=== PATIENT | male | born 1995 | race Caucasian/White ===

== ENCOUNTER 2019-07-12 23:31 | Emergency (ER) | payer BC ==
[~2019-07-12] VITALS: Ht 177.8 cm; Wt 68.0 kg
[2019-07-13 00:48] LABS: BASO # 0.1 10*3/uL (0.0-0.1); BASO % 0.6 % (0.0-1.0); EOS # 0.1 10*3/uL (0.0-0.4); EOS % 0.9 % (1.0-4.0); HEMATOCRIT 47.6 % (42.0-52.0); HEMOGLOBIN 15.8 g/dl (14.0-18.0); LYMPH # 1.6 10*3/uL (1.3-4.4); LYMPH % 12.5 % (27.0-41.0); MEAN CELL VOLUME 89.1 fl (80.0-94.0); MEAN CORPUSCULAR HGB 29.6 pg (27.0-31.0); MEAN CORPUSCULAR HGB CONC 33.2 g/dl (33.0-37.0); MEAN PLATELET VOLUME 13.4 fl (9.6-12.3); MONO # 0.6 10*3/uL (0.1-1.0); MONO % 4.9 % (3.0-9.0); NEUT # 10.3 10*3/uL (2.3-7.9); NEUT % 80.1 % (47.0-73.0); RED BLOOD COUNT 5.34 10*6/uL (4.50-5.90); RED CELL DISTRI WIDTH 11.9 % (0-14.5); WHITE BLOOD COUNT 12.8 10*3/uL (4.8-10.8)
[2019-07-13 01:05] LABS: ALBUMIN 4.2 gm/dl (3.1-4.5); ALKALINE PHOSPHATASE 78 U/L (45-117); BUN 16 mg/dl (7-24); CHLORIDE 105 mmol/L (98-107); CREATININE 1.08 mg/dL (0.70-1.30); LIPASE 124 U/L (73-393); POTASSIUM 4.5 mmol/L (3.5-5.1); SGOT/AST 23 IU/L (3-35); SGPT/ALT 55 U/L (12-78); SODIUM 139 mmol/L (136-145); TOTAL PROTEIN 8.4 gm/dL (6.4-8.2)
[2019-07-13 01:11] LABS: PLATELET COUNT AUTOMATED 85 10*3/uL (130-400)
== END 2019-07-13 02:20 | disposition home or self-care (01) ==
LOC: ED 23:31
PROVIDERS: Emergency Medicine Emergency Medical Services
DX: F10.929 Alcohol use, unspecified with intoxication, unspecified (principal); D69.6 Thrombocytopenia, unspecified; R42 Dizziness and giddiness; Y90.9 Presence of alcohol in blood, level not specified